=== PATIENT | female | born 1975 | race Hispanic/Latino ===

== ENCOUNTER 2016-11-03 06:04 | Day surgery (SDC) | payer OTHER ==
[2016-11-02 09:08] VITALS: BMI 27.2
[2016-11-03] MEDS ORDERED: Lidocaine 4% (Laryng-O-Jet) Kit MM ONE (07:14)
[2016-11-03] MEDS ORDERED: Propofol 10 mg/ml Inj (20 ML) ONE ×2 (07:14→09:50)
[2016-11-03] MEDS ORDERED: ePHEDrine 50 mg/ml Inj ONE (07:14)
[2016-11-03] MEDS ORDERED: Midazolam 2 MG/2 ML VIAL ONE (07:14)
[2016-11-03] MEDS ORDERED: Rocuronium 10 mg/ml (5 ml) ONE (07:14)
[2016-11-03] MEDS ORDERED: Succinylcholine 200 mg/10 ml Inj IV ONE (07:14)
[2016-11-03 07:15] LABS: HEMATOCRIT 37.3 % (34.0-47.0); MEAN CELL VOLUME 88.6 fl (81.0-99.0); MEAN CORPUSCULAR HEMOGLOBIN 30.1 pg (27.0-31.0); MEAN CORPUSCULAR HGB CONC 33.9 g/dL (33.0-37.0); RED CELL DISTRIBUTION WIDTH 13.8 % (11.5-14.5); WHITE BLOOD COUNT 6.6 K/uL (4.8-10.8)
[2016-11-03] MEDS ORDERED: Bupivacaine 0.5% Inj(30mL) ONE (07:32)
[2016-11-03] MEDS ORDERED: Lactated Ringer's 1,000 ML IV ONE ×2 (08:40→08:50)
[2016-11-03] MEDS ORDERED: Neostigmine Methylsulfate 3mg/3ml Syringe IV ONE (08:47)
[2016-11-03] MEDS ORDERED: Dexamethasone 4 mg/1 ml ONE (09:00)
[2016-11-03] MEDS ORDERED: Desflurane Inhalation Anesthetic Liq (240 ml) ONE (09:00)
[2016-11-03] MEDS ORDERED: Neostigmine Methylsulfate 2 MG/2 ML ML IV ONE (09:35)
[2016-11-03] MEDS ORDERED: Silver Nitrate Topical - Stick ONE (10:09)
[2016-11-03] MEDS ORDERED: HYDROmorphone 0.5 mg/0.5 ml ISec IVP PRN (10:13)
[2016-11-03] MEDS ORDERED: Lactated Ringer's 1,000 ML IV SCH (10:15)
[2016-11-03 10:25] VITALS: RESP 18
[2016-11-03] MEDS ORDERED: Oxycodone/Acetaminophen 5/325 mg Tab PO PRN (11:11)
[2016-11-03 13:09] VITALS: TEMP 98
[2016-11-03 14:09] VITALS: BP 129/77; PULSE 88; O2SAT 97
--- NOTE | 2016-11-05 11:31 | OP ---
PROCEDURE DATE: 11/03/2016 SURGEON: Nacho Louis MD. EDUCATIONAL PSYCHOLOGY TEACHER: Kevin Chin MD. PROCEDURE PERFORMED: Robotic lysis of large bowel adhesions. PREOPERATIVE DIAGNOSES: Abdominal pain and endometriosis. POSTOPERATIVE DIAGNOSES: Abdominal pain and endometriosis. ANESTHESIA: General. ANESTHESIOLOGIST: Dr. Osman. ESTIMATED BLOOD LOSS: 0 mL. SPECIMEN SENT: None. BRIEF HISTORY: This is a 41-year-old woman who was previously brought to the operating room by Dr. Jose Chin for abdominal pain and endometriosis. During the course of his robotic exploration, he noticed that there were significant adhesions of the sigmoid colon to the lateral fascia and pelvic f cristian where the suspected endometriosis was presumed. In order for him to get pelvic clearance, he as ked me to enter the operating room and examine these extensive adhesions. DESCRIPTION OF PROCEDURE: The patient had been brought to the operating room by Dr. Kevin Chin an d the robotic procedure had already been initiated (separate dictation Dr. Kevin Chin). I took ov er the robotic console and using blunt and sharp dissection with the aid electrocautery, first the si gmoid colon was detached from the lateral pelvic attachments and the medial adhesions were lysed in a similar fashion using blunt and sharp dissection with the aid of electrocautery. Once the sigmoid c olon was completely lysed from the pelvic floor, it was retracted anteriorly and at this point, Dr. Herman miller could proceed with the remainder of the operation (separate dictation Dr. Kevin Chin). Nacho Louis MD cc: [id number] TT: 11/05/2016 11:31:33 tn
--- NOTE | 2016-11-15 08:22 | OP ---
PROCEDURE DATE: 11/03/2016 PREOPERATIVE DIAGNOSES: Dysmenorrhea, dyspareunia, pelvic pain, rule out endometriosis. POSTOPERATIVE DIAGNOSES: Dysmenorrhea, dyspareunia, pelvic pain, rule out endometriosis, confirm pel deborah endometriosis, cystitis cystica. SURGEON: Kevin Chin M.D. ASSISTED INTRAOPERATIVELY BY: General surgery, Dr. Nacho Louis, who will dictate separately a pro cedure of lysis of adhesions. ESTIMATED BLOOD LOSS: Minimal. COMPLICATIONS: None. PROCEDURE PERFORMED: Cystoscopy with bilateral ureteral stenting and injection of dye, diagnostic hys teroscopy, laparoscopy, robotic; excision of endometriosis and left ureterolysis. SPECIMEN: Multiple samples sent to pathology. DESCRIPTION OF PROCEDURE: After adequate anesthesia was obtained, the patient was placed in a dorsal lithotomy position. She was prepped and draped, the surgeon gowned and gloved. At this point, atte ntion was in the vaginal area where a cystoscope was inserted into the bladder. The bladder appeared to have multiple implants of the cystitis cystica diffusely in the trigone area. At this point, a 5 -Syriac stent was used to cannulate both ureters and through the stents, 0.0.5 mL of IC-Green was inj ected into each ureter. At this point, attention was on the vaginal area where a hysteroscope was in serted in the uterine cavity, which revealed a normal sized cavity. At this point, attention was on the abdomen where an incision was made below the umbilicus and with an open laparoscopy technique, a trocar was inserted. At this point, under direct visualization, 3 additional trocars were inserted; l eft lower quadrant, left upper quadrant and right upper quadrant and da Rebekah robot was docked. Find ings were as follows: There was a typical endometriotic lesion of the deep infiltrating type on the left pelvic sidewall and there were 2 smaller implants on the anterior bladder. At this point, there were some adhesions of the colon being draped across the pelvis and not allowing me to get through t he pelvis. Dr. Louis from general surgery was called in to free the colon. After this was done, a ttention was on the pelvis where after identifying the left ureter secondary to fluorescence, the per itoneum overlying the ureter was grasped and elevated and the retroperitoneal space was entered. Pro gressive dissection was performed, dissecting off the ureter and identifying a large swath of pelvic sidewall peritoneum containing endometriosis which was excised and sent to pathology. At this point, the uterus was retroverted and the anterior bladder was observed. There appeared to be 2 black hemo rrhagic lesions on top of the bladder. These were excised, excising just directly the peritoneum wit hout damaging the muscularis of the bladder. This was done without any problems or bleeding. At thi s point, all the lesions were sent to pathology. It was checked for hemostasis and appeared to be ex cellent. The robot was undocked. The trocars were removed. The abdomen was desufflated. The fasci al lesion was closed with 0 PDS and the skin was reapproximated with Monocryl. The instruments were removed from the vagina. At the end of the procedure, all tapes and instrument counts were correct. The patient tolerated the procedure well and was taken to recovery room in excellent condition. Kevin Chin MD cc: [id number] TT: 11/15/2016 08:22:15 tn
== END 2016-11-03 14:30 | disposition home or self-care (01) ==
LOC: H.OPSURG 06:04
PROVIDERS: ATTEND Obstetrics & Gynecology Reproductive Endocrinology
DX: N80.0 Endometriosis of uterus (principal); N80.3 Endometriosis of pelvic peritoneum; N80.8 Other endometriosis; N94.6 Dysmenorrhea, unspecified; N94.10 Unspecified dyspareunia; N30.80 Other cystitis without hematuria; K66.0 Peritoneal adhesions (postprocedural) (postinfection)